=== PATIENT | female | born 2005 | race Caucasian/White ===

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

== ENCOUNTER 2024-02-14 21:46 | Outpatient (CLI) | payer MEDICAID, SELFPAY ==
[2024-02-14 21:52] VITALS: BMI 31.3
[2024-02-14 21:58] VITALS: BP 126/69; PULSE 70
[2024-02-14 22:13] VITALS: BP 108/66; PULSE 55
[2024-02-14 22:29] VITALS: BP 125/60; PULSE 67
[2024-02-15 20:49] LABS: Glucose Point of Care 82 mg/dL (70-110)
== END 2024-02-14 22:54 | disposition home or self-care (01) ==
LOC: OPOB 21:48 → OBGYN 21:52
PROVIDERS: PCP Family Medicine; Visit Provider Family Medicine
DX: O26.899 Other specified pregnancy related conditions, unspecified trimester (principal); Z3A.00 Weeks of gestation of pregnancy not specified
CPT/HCPCS: 36416; 59025; 82962; 99211

== ENCOUNTER 2024-03-09 15:27 | Inpatient (IN) | payer MEDICAID, SELFPAY ==
[2024-03-09] VITALS (84 sets, daily range): BP systolic 98–145; BP diastolic 56–86; PULSE 53–99; RESP 18; TEMP 36.4–37; O2SAT 92–100; BMI 31.7
[2024-03-09 12:34] LABS: Basophils # 0.1 10^3/uL (0.0-0.1); Basophils % 0.6 %; Eosinophils # 0.1 10^3/uL (0.0-0.8); Eosinophils % 1.1 %; Hematocrit 30.1 % (36-47); Lymphocytes # 1.7 10^3/uL (0.8-4.8); Lymphocytes % 16.3 %; Mean Corpuscular HGB Conc 30.6 g/dL (30-55); Mean Corpuscular Hemoglobin 25.8 pg (27-33); Mean Corpuscular Volume 84.6 fl (85-98); Mean Platelet Volume 12.2 fL (7.4-10.4); Monocytes # 0.5 10^3/uL (0.2-0.9); Monocytes % 4.8 %; Neutrophils # 8.09 10^3/uL (1.8-7.7); Neutrophils % 76.9 %; Nucleated Red Blood Cells % 0 %; Platelet Count 191 10^3/cmm (157-399); Red Blood Count 3.56 10^6/uL (3.85-5.65); Red Cell Distribution Width 15.9 % (12.1-15.1); White Blood Count 10.52 10^3/uL (3.29-11.43)
--- NOTE | 2024-03-09 12:34 | ANES.PREANE2 ---
Pre-Anesthetic Assessment Height/Weight: Height 4 ft 11 in Pulse BP O2 Del Method 56 L 119/67 Room Air 03/09/24 11:45 03/09/24 11:45 03/09/24 12:00 Preop Diagnosis: Spontaneous labor Was Beta Martha taken within 24 hours: N/A Was Clonidine taken within 24 hours: N/A Social No alcohol and No tobacco Exam alert, oriented x 3, clear to auscultation bilaterally and regular rate & rhythm Airway Submandibular: within normal limits Cervical ROM: within normal limits Mallampati: Class III Dentition: full Anesthetic Plan ASA status: 2 Anesthesia: Regional (specify below) Other: First , No prior issues with anesthesia Patient has no PMH other than anemia Labs reviewed and acceptable for procedure, platelet 191 Mets>4 Plan for routine epidural placement Medications/Allergies Home Medications Medication Instructions Recorded Confirmed Last Taken Type No Known Home Medications 06/18/19 Unknown History Allergies Allergy/AdvReac Type Severity Reaction Status Date / Time No Known Allergies Allergy Unverified 06/18/19 08:13 [facility] Anesthesia Family History Other Cancer Diabetes Hyperlipidemia Hypertension Stroke Denies family history of CAD (coronary artery disease) Clotting disorder Dementia Psychiatric illness Chronic kidney disease (CKD) Suicide Anesthesia complication Bleeding disorder Family history of premature coronary artery disease Lung disease Social History (Updated 06/18/19 @ 08:17 by Kendra Espinosa LPN) Smoking and tobacco/nicotine status: never used tobacco/nicotine Second hand smoke exposure: Yes Alcohol intake: never Substance/Drug Use: never Adopted: No Data Anesthesia 03/09/24 12:15 Short CBC 03/09/24 Range/Units 12:15 WBC 10.52 (3.29-11.43) 10^3/uL Hgb 9.20 L (11.27-16.99) g/dL Hct 30.1 L (36-47) % MCV 84.6 L (85-98) fl Plt Count 191 (157-399) 10^3/cmm Neut % (Auto) 76.9 % Neut # (Auto) 8.09 H (1.8-7.7) 10^3/uL Cardiac Studies: No Data to Display
[2024-03-09] MEDS: lactated ringers 1,000 ML 999 ML IV ×3 (12:54→21:10)
[2024-03-09] MEDS: fentaNYL 50 mcg/mL INJ 2mL IVP (13:39)
--- NOTE | 2024-03-09 14:32 | ANES.PROC ---
Anesthesia Procedures Procedure/Date: 03/09/24 Epidural: Time Out Performed: Yes Consents Signed: Procedure Consent Consent: from patient, risks and benefits reviewed and patient agrees to proceed Lumbar Level: L3-L4 Epidural position: sitting Epidural procedure: sterile prep of area, 1% lidocaine to numb the area, 18 g needle, negative for paresthesia passed, neg for paresthesia, test dose given, 1.5% xylocaine 1:200k epi, placed PCEA, no systemic response, sterile dressing applied, L.U.D. no apparent complications and 0.2% Ropiavacaine @ mls/hr (10) Additional Comments: BRUNO at 5. negative heme/CSF upon aspiration. pt tolerated well. taped at 12 at skin.
[2024-03-09] MEDS: ROPivacaine syringe 100 MG/50 ML SYRINGE 10 MG EPIDURAL ×3 (14:35→21:10)
[2024-03-10] VITALS (22 sets, daily range): BP systolic 108–143; BP diastolic 59–79; PULSE 59–87; RESP 14–16; TEMP 36.4–36.9; O2SAT 99
[2024-03-10] MEDS: lactated ringers 1,000 ML 999 ML IV (00:20)
--- NOTE | 2024-03-10 02:56 | PM.OPHPUD ---
Labor & Delivery H&P Update Date of Procedure: March 10, 2024 Date H&P Performed: 03/08/24 Admission Diagnosis: IUP at 40 weeks 3 days gestation in spontaneous labor Preop diagnosis: Spontaneous labor Planned procedure: Expectant management of labor and delivery
--- NOTE | 2024-03-10 02:57 | PM.DELIVERY ---
Delivery Note: Date of delivery: March 10, 2024 Procedure: Normal spontaneous vaginal delivery Estimated blood loss (mL): 250 Pre-Delivery Course: The patient had routine care at [facility]. She was blood type O+ antibody negative, hepatitis B nonreactive, hepatitis C nonreactive, HIV nonreactive, rubella immune, GC chlamydia negative, RPR nonreactive, UDS negative, Q low risk, she passed her glucose tolerance test, she was GBS negative. There were really no complications of the pregnanc. Though she did have slow fundal height progression her growth and LEE ultrasounds were within normal limits. Delivery: This is a 19-year-old G1, P0 at 40 weeks 3 days gestation who presented to labor and delivery in active labor. She was admitted for expectant management and received an epidural for pain management. After she received the epidural and was laid back down it appeared that her water had broken spontaneously. Fluid was clear. She progressed well on her own and did not require any Pitocin. She had a normal spontaneous vaginal delivery of a viable female weight 3280 g, 7 pounds 4 ounces, Apgars 9 and 9 over an intact perineum. Upon delivery of the infant's head meconium was noted. There was also a copious amount of terminal meconium. The infant was suctioned at delivery and placed on the mother's chest. The cord was clamped and cut. The placenta was delivered grossly intact and normal to inspection. There was a first-degree periurethral laceration on the right that required 1 stitch of 3-0 chromic. Otherwise there were only hemostatic abrasions. Mother and were doing well after delivery. Coding Level of Care Code Acute Code for Chg Fwd
[2024-03-10] MEDS: ROPivacaine syringe 100 MG/50 ML SYRINGE 10 MG EPIDURAL (04:18)
[2024-03-10] MEDS: docusate sodium 100 mg Capsule PO (10:00)
[2024-03-10] MEDS: PRENATAL VIT NO.130/IRON/FOLIC 1 EACH TABLET PO (10:00)
[2024-03-10] MEDS: benzocaine-menthol 78 gm Canister 1 SPRAY TOPICAL (10:00)
[2024-03-10] MEDS: ibuprofen 800 mg tablet PO ×2 (10:00→20:02)
[2024-03-10 14:31] LABS: Hematocrit 22.8 % (36-47); Mean Corpuscular HGB Conc 31.1 g/dL (30-55); Mean Corpuscular Volume 83.5 fl (85-98); Mean Platelet Volume 11.4 fL (7.4-10.4); Platelet Count 156 10^3/cmm (157-399); Red Blood Count 2.73 10^6/uL (3.85-5.65); Red Cell Distribution Width 15.9 % (12.1-15.1); White Blood Count 11.67 10^3/uL (3.29-11.43)
[2024-03-11] MEDS: ibuprofen 800 mg tablet PO (09:40)
[2024-03-11 10:53] VITALS: BP 102/52; PULSE 71; RESP 16; TEMP 36.7
--- NOTE | 2024-03-11 11:42 | P.DS_ITS ---
Discharge Providers Date of Admission: 03/09/24 15:27 Date of Discharge: March 11, 2024 Attending Provider at Admission: Malika Mays MD Attending Provider at Discharge: Malika Mays MD Primary Care Provider: Jacob Hdz MD Reason for Visit Reason for Visit: CTX Hospital Course Hospital Course This is a 19-year-old G1 now P1 who was admitted in active labor. She had a normal spontaneous vaginal delivery of a viable female infant at 40 weeks 4 days gestation. Mother has done well shoe. She is a mbulating, tolerating a regular diet, has average vaginal bleeding and essentially no pain other than expected cramping. Physical Exam Narrative: Alert and oriented, sitting in bed feeding the infant, heart regular rate and rhythm, lungs clear to auscultation bilaterally, abdomen is soft and nontender, fundus is firm, extremities have 1+ edema but no calf tenderness Urinary Catheter Management: Bryant: Cath Placed During This Visit: yes, but has since been removed by the nurse Reason for Continuing Indwelling Catheter: Other Urinary Catheter Date of Insertion: 03/09/24 Urinary Catheter Time of Insertion: 15:10 Date Urinary Catheter Removed: 03/10/24 Time Urinary Catheter Discontinued: 02:08 Discharge Data Studies Completed and Pending Laboratory Results WBC 11.67 10^3/uL (3.29-11.43) H 03/10/24 14:22 RBC 2.73 10^6/uL (3.85-5.65) L 03/10/24 14:22 Hgb 7.10 g/dL (11.27-16.99) L 03/10/24 14:22 Hct 22.8 % (36-47) L 03/10/24 14:22 MCV 83.5 fl (85-98) L 03/10/24 14:22 MCH 26.0 pg (27-33) L 03/10/24 14:22 MCHC 31.1 g/dL (30-55) 03/10/24 14:22 RDW 15.9 % (12.1-15.1) H 03/10/24 14:22 Plt Count 156 10^3/cmm (157-399) L 03/10/24 14:22 MPV 11.4 fL (7.4-10.4) H 03/10/24 14:22 Neut % (Auto) 76.9 % 03/09/24 12:15 Lymph % (Auto) 16.3 % 03/09/24 12:15 [place] % (Auto) 4.8 % 03/09/24 12:15 Eos % (Auto) 1.1 % 03/09/24 12:15 Baso % (Auto) 0.6 % 03/09/24 12:15 Neut # (Auto) 8.09 10^3/uL (1.8-7.7) H 03/09/24 12:15 Lymph # (Auto) 1.7 10^3/uL (0.8-4.8) 03/09/24 12:15 [place] # (Auto) 0.5 10^3/uL (0.2-0.9) 03/09/24 12:15 Eos # (Auto) 0.1 10^3/uL (0.0-0.8) 03/09/24 12:15 Baso # (Auto) 0.1 10^3/uL (0.0-0.1) 03/09/24 12:15 Nucleated RBC % (auto) 0 % 03/09/24 12:15 Nucleated RBCs # 0.0 /100WBC 03/09/24 12:15 Blood Type O Positive 03/09/24 13:30 Rho(D) Type Rh positive 03/09/24 13:30 Antibody Screen Negative 03/09/24 13:30 Vitals Last Vital Signs Temp 98.1 F 03/11/24 10:53 Pulse 71 03/11/24 10:53 Resp 16 03/11/24 10:53 BP 102/52 03/11/24 10:53 Pulse Ox 99 03/10/24 21:15 O2 Del Method Room Air 03/10/24 21:15 Discharge Plan Discharge Patient Disposition: Home Condition: Stable Prescriptions: No Action No Known Home Medications Discharge Orders: Discharge Order (Routine); Ordered 03/11/24 Ordered By: Malika Mays Referrals: Malika Mays MD [Physician] - 1 month Discharge Diet: Usual diet Discharge Activity: Limit activity as instructed Patient Instructions: Depression (DC), Bleeding (DC), Preeclampsia and Eclampsia After Delivery (GEN), Vaginal Delivery (DC), Hemorrhage (DC), OB Discharge Report, OB Food/Drug Interaction Guide, Opioid Safety, OB Home Care, OB Proud Parent Packet, OB Vaginal Deliveries Activity Restrictions/Additional Instructions: Nothing per vagina for 6 weeks Discharge Attestations Time Spent in Discharge Care*: less than 30 min Quality Metrics Clinical Quality Measures [ No reported AMI, CVA or VTE this stay] Coding Level of Care Code Acute Code for Chg Fwd
[2024-03-11 12:00] VITALS: BP 108/64; PULSE 75; RESP 16; TEMP 36.7; O2SAT 99
--- NOTE | 2024-03-14 14:48 | ANE.PACU2 ---
Inpatient post-anesthesia follow up: Airway intact: Yes Vital signs: Temperature 98.0 F Pulse Rate 75 Respiratory Rate 16 Blood Pressure 108/64 Pulse Oximetry 99 Oxygen Delivery Me thod Room Air Oxygen Flow Rate Fraction of Inspir ed Oxygen Hydration adequate: Yes Nausea and vomiting: No Pain level: 1 Mental status: Baseline Epidural Start/End: Epidural Start Date: 03/09/24 Epidural Start Time: 14:15 Epidural End Date: 03/10/24 Epidural End Time: 05:20
== END 2024-03-11 12:30 | disposition home or self-care (01) | DRG 807 ==
LOC: OPOB 15:28 → OBGYN 15:28
PROVIDERS: Admitting Provider Family Medicine; PCP Family Medicine; Visit Provider Family Medicine
DX: O77.0 Labor and delivery complicated by meconium in amniotic fluid (principal); Z37.0 Single live birth; Z3A.40 40 weeks gestation of pregnancy; O48.0 Post-term pregnancy; O71.82 Other specified trauma to perineum and vulva
CPT/HCPCS: 36415; 51702; 59025; 59409; 85025; 85027; 86850; 86900; 96374; 99211; J2795; J3010; J7120

== ENCOUNTER 2024-03-30 17:45 | Emergency (ER) | payer MEDICAID, SELFPAY ==
--- NOTE | 2024-03-30 17:48 | ECG_ITS ---
[facility] Test Date: 2024-03-30 Pat Name: Bibi Auguste Department: Room: Gender: Female Associate Professor Physician: : 2005 Requested By: Madeline Rebollar Order Number: [id number] Cartagena MD: Jered Avelar M.D. Measurements Intervals [place] Rate: 71 P: 53 IN: 170 QRS: 49 QRSD: 81 T: 29 QT: 363 QTc: 395 Interpretive Statements SINUS RHYTHM No previous ECG available for comparison Electronically Signed On 03-31-2024 13:17:57 SPLICER OPERATOR by Jered Avelar M.D. [id number]
--- NOTE | 2024-03-30 17:48 | CTR_ITS ---
PROCEDURE INFORMATION: Exam: CT Head Without Contrast Exam date and time: 03/30/2024 6:14 PM Age: 19 years old Clinical indication: EMS arrival for seizure TECHNIQUE: Imaging protocol: Computed tomography of the head without contrast. Axial, coronal and sagittal reformatted images were created and reviewed. Radiation optimization: All CT scans at this facility use at least one of these dose optimization techniques: automated exposure control; mA and/or kV adjustment per patient size (includes targeted exams where dose is matched to clinical indication); or iterative reconstruction. COMPARISON: No relevant prior studies available. RADIATION DOSE METRICS: Total DLP (mGy-cm): 970.51 FINDINGS: Brain: No CT evidence of acute intracranial hemorrhage or acute territorial infarction. No significant mass effect or midline shift. Basal cisterns patent. Cerebral ventricles: Normal in size and configuration. Paranasal sinuses: Mild ethmoid mucosal thickening. No air-fluid levels. Mastoid air cells: Grossly unremarkable. Bones: Unremarkable. No acute fracture. Soft tissues: Grossly unremarkable. CT/CT head wo con* [id number]: 1. No CT evidence of acute intracranial pathology. 2. Additional findings, as above.
[2024-03-30 17:49] VITALS: BP 112/74; PULSE 79; RESP 20; TEMP 36.5; O2SAT 100; BMI 26.6
--- NOTE | 2024-03-30 17:55 | PC.NURSE ---
seizure pads placed on bed railing, monitor and storage bin tender placed on pt, suction available at bedside.
[2024-03-30 17:58] LABS: Basophils # 0.1 10^3/uL (0.0-0.1); Basophils % 1.3 %; Eosinophils # 0.2 10^3/uL (0.0-0.8); Eosinophils % 4.9 %; Hematocrit 34.8 % (36-47); Lymphocytes # 1.7 10^3/uL (0.8-4.8); Lymphocytes % 36.3 %; Mean Corpuscular HGB Conc 30.7 g/dL (30-55); Mean Corpuscular Hemoglobin 25.7 pg (27-33); Mean Corpuscular Volume 83.7 fl (85-98); Mean Platelet Volume 11.6 fL (7.4-10.4); Monocytes # 0.3 10^3/uL (0.2-0.9); Monocytes % 5.4 %; Neutrophils # 2.42 10^3/uL (1.8-7.7); Neutrophils % 51.9 %; Nucleated Red Blood Cells % 0 %; Platelet Count 271 10^3/cmm (157-399); Red Blood Count 4.16 10^6/uL (3.85-5.65); Red Cell Distribution Width 14.7 % (12.1-15.1); White Blood Count 4.66 10^3/uL (3.29-11.43)
[2024-03-30 18:05] VITALS: BP 116/68; PULSE 83; O2SAT 99
--- NOTE | 2024-03-30 18:25 | ED_ITS ---
HPI - Seizure 2 General: Chief Complaint: Seizure Stated Complaint: tonic-clonic seizure Time Seen by Provider: 03/30/24 17:47 History of Present Illness: HPI Narrative: Patient presents to the ER by EMS after having tonic-clonic type seizure. This was witnessed by family said lasted about 4 minutes. Per EMS patient was postictal and confused about 20 minutes. Patient says she has had headache since she delivered she did have an epidural. Patient delivered spontaneous vaginal delivery with no complications on March 10. Patient did not have a history of seizures. Patient had a headache since then. Patient did have an epidural. Patient said her body just felt heavy before the seizure. Related Data Home Medications Medication Instructions Recorded Confirmed No Known Home Medications 06/18/19 Allergies Allergy/AdvReac Type Severity Reaction Status Date / Time No Known Allergies Allergy Verified 03/30/24 17:57 Review of Systems 2 General: Reports: 10 or more systems reviewed and unremarkable except in HPI and below PFSH ED 2 PFSH: Family History Other Cancer Diabetes Hyperlipidemia Hypertension Stroke Denies family history of CAD (coronary artery disease) Clotting disorder Dementia Psychiatric illness Chronic kidney disease (CKD) Suicide Anesthesia complication Bleeding disorder Family history of premature coronary artery disease Lung disease Social History Smoking and tobacco/nicotine status: never used tobacco/nicotine Second hand smoke exposure: Yes Alcohol intake: never Substance/Drug Use: never Adopted: No Physical Exam 2 Const: COMMON NORMALS: no acute distress, average body habitus, patient oriented x3, no limitations, healthy appearing, alert and well nourished HENMT: COMMON NORMALS: normocephalic, atraumatic, hearing grossly normal bilaterally, external ears normal, Normal external nose present and moist oral mucous membranes HEAD & SCALP: normocephalic and atraumatic NOSE: Normal external nose present EXTERNAL EAR: Yes external ears normal Eye: COMMON NORMALS: Equal, round and reactive pupils present, EOMs intact bilaterally, conjunctivae normal and no scleral icterus CONJUNCTIVA: Yes conjunctivae normal PUPIL: Yes Equal, round and reactive pupils present Neck/C-Spine: COMMON NORMALS: full ROM, no lymphadenopathy, supple, no meningeal signs, no JVD and Thyroid normal THYROID: Thyroid normal Chest: COMMONS NORMALS: normal inspection of the chest and normal palpation of entire chest wall Resp: COMMON NORMALS: normal respiratory effort, No retractions, No use of accessory muscles and clear to auscultation bilaterally AUSCULTATION: clear to auscultation bilaterally Cardio: COMMON NORMALS: no JVD, regular rate, regular rhythm, S1 normal heart sound present, S2 normal heart sound present, No gallops present (Cardio), No clicks present (Cardio), No murmurs present (Cardio) and No rub (Cardio) R ATE: regular rate RHYTHM: regular rhythm HEART SOUNDS: S1 normal heart sound present and S2 normal heart sound present GI: COMMON NORMALS: Normal to inspection, nondistended, normoactive bowel sounds present, Soft to palpation, non-tender, No hepatosplenomegaly present and no masses PALPATION: Yes Soft to palpation and Yes No hepatosplenomegaly present Neuro: COMMON NORMALS: patient oriented x3 SENSORIUM/ORIENTATION: Yes alert MENINGEAL SIGNS: Yes no meningeal signs Course 2 Vital Signs: Vital signs: Vital Signs Temperature 97.7 F 03/30/24 17:49 Pulse Rate 66 03/30/24 19:38 Respiratory Rate 17 03/30/24 19:38 Blood Pressure 107/61 03/30/24 19:38 Pulse Oximetry 99 03/30/24 19:38 Oxygen Delivery Me thod Room Air 03/30/24 17:49 MDM - Seizure MDM Narrative Medical decision making narrative: Discussed this case with Dr. Galindo, does not sound like preeclamptic type seizure. May be syncope with twitching or a true seizure. We will discharge the patient home let her follow-up with her PCP. Patient may benefit by following up with neurology. Medical Records Attestation: I reviewed the patient's medical records. Lab Data Attestation: I reviewed the patient's lab results. 03/30/24 17:51 03/30/24 17:51 Labs: Radiology Impressions Head CT 03/30/24 17:48 IMPRESSION: 1. No CT evidence of acute intracranial pathology. 2. Additional findings, as above. Laboratory Results WBC 4.66 10^3/uL (3.29-11.43) 03/30/24 17:51 RBC 4.16 10^6/uL (3.85-5.65) 03/30/24 17:51 Hgb 10.70 g/dL (11.27-16.99) L 03/30/24 17:51 Hct 34.8 % (36-47) L 03/30/24 17:51 MCV 83.7 fl (85-98) L 03/30/24 17:51 MCH 25.7 pg (27-33) L 03/30/24 17:51 MCHC 30.7 g/dL (30-55) 03/30/24 17:51 RDW 14.7 % (12.1-15.1) 03/30/24 17:51 Plt Count 271 10^3/cmm (157-399) 03/30/24 17:51 MPV 11.6 fL (7.4-10.4) H 03/30/24 17:51 Neut % (Auto) 51.9 % 03/30/24 17:51 Lymph % (Auto) 36.3 % 03/30/24 17:51 [place] % (Auto) 5.4 % 03/30/24 17:51 Eos % (Auto) 4.9 % 03/30/24 17:51 Baso % (Auto) 1.3 % 03/30/24 17:51 Neut # (Auto) 2.42 10^3/uL (1.8-7.7) 03/30/24 17:51 Lymph # (Auto) 1.7 10^3/uL (0.8-4.8) 03/30/24 17:51 [place] # (Auto) 0.3 10^3/uL (0.2-0.9) 03/30/24 17:51 Eos # (Auto) 0.2 10^3/uL (0.0-0.8) 03/30/24 17:51 Baso # (Auto) 0.1 10^3/uL (0.0-0.1) 03/30/24 17:51 Nucleated RBC % (auto) 0 % 03/30/24 17:51 Nucleated RBCs # 0.0 /100WBC 03/30/24 17:51 Sodium 140 mmol/L (136-145) 03/30/24 17:51 Potassium 4.4 mmol/L (3.5-5.1) 03/30/24 17:51 Chloride 103 mmol/L (98-107) 03/30/24 17:51 Carbon Dioxide 23 mmol/L (22-29) 03/30/24 17:51 Anion Gap 18.4 (5-19) 03/30/24 17:51 BUN 7 mg/dL (6-20) 03/30/24 17:51 Creatinine 0.8 mg/dL (0.5-0.9) 03/30/24 17:51 GFR Calculation 90.5 mL/min (90-130) 03/30/24 17:51 Glucose 80 mg/dL (65-115) 03/30/24 17:51 Calculated Osmolality 287 mOsm/kg (285-295) 03/30/24 17:51 Calcium 10.0 mg/dL (8.5-10.5) 03/30/24 17:51 Total Bilirubin 0.5 mg/dL (0.15-1.2) 03/30/24 17:51 AST 30 U/L (0-32) 03/30/24 17:51 ALT 21 U/L (0-33) 03/30/24 17:51 Alkaline Phosphatase 114 U/L (35-105) H 03/30/24 17:51 Lactate Dehydrogenase 277 U/L (135-214) H 03/30/24 17:51 Total Protein 8.1 g/dL (6.6-8.7) 03/30/24 17:51 Albumin 4.5 g/dL (3.5-5.2) 03/30/24 17:51 Globulin 3.6 g/dL (1.3-4.6) 03/30/24 17:51 Urine Color Yellow (Yellow) 03/30/24 19:36 Urine Appearance Clear (CLEAR) 03/30/24 19:36 Urine pH 7.0 (5-7) 03/30/24 19:36 Ur Specific [place] 1.012 (1.005-1.030) 03/30/24 19:36 Urine Protein 1+ (Negative) A 03/30/24 19:36 Urine Glucose (UA) Negative (Normal) 03/30/24 19:36 Urine Ketones Negative (Negative) 03/30/24 19:36 Urine Blood 3+ (Negative) A 03/30/24 19:36 Urine Nitrate Negative (Negative) 03/30/24 19:36 Urine Bilirubin Negative (Negative) 03/30/24 19:36 Urine Urobilinogen 1.0 mg/dL (Negative) 03/30/24 19:36 Ur Leukocyte Esterase 1+ (Negative) A 03/30/24 19:36 Urine RBC 6-10 /hpf (0-2) 03/30/24 19:36 Urine WBC 11-20 /hpf (0-5) H 03/30/24 19:36 Ur Squamous Epith Cells 0-5 /hpf (0-5) 03/30/24 19:36 Amorphous Sediment Not Reportable 03/30/24 19:36 Urine Bacteria 2+ /hpf (NONE) H 03/30/24 19:36 Hyaline Casts 0.40 /lpf 03/30/24 19:36 All radiology interpretation(s) finalized by discharge Discharge Plan Discharge Patient Disposition: Home Clinical Impression: New onset seizure Condition: Stable Prescriptions: No Action No Known Home Medications Discharge Orders: Discharge ED (Routine); Ordered 03/30/24 Ordered By: Richard Lagos Referrals: Jacob Hdz MD [Primary Care Provider] - 1 week Patient Instructions: Seizures Activity Restrictions/Additional Instructions: Your evaluation in the ER did not show any acute cause of your seizure activity. We did discuss the results of the lab tests and imaging and physical exam with Dr. Mays, she does not think it is an preeclamptic type seizure. Please follow- up with your family practice physician for further evaluation and treatment. You may benefit from a referral to a neurologist for formal evaluation. Coding Level of Care Code ED Digestion Operator for Delmy Arias
[2024-03-30 18:29] LABS: Alanine Aminotransferase 21 U/L (0-33); Albumin Level 4.5 g/dL (3.5-5.2); Alkaline Phosphatase 114 U/L (35-105); Blood Urea Nitrogen 7 mg/dL (6-20); Carbon Dioxide 23 mmol/L (22-29); Chloride 103 mmol/L (98-107); Creatinine Clr Calc Pharmacy 105.1433; Globulin 3.6 g/dL (1.3-4.6); Glomerular Filtration Rate 90.5 mL/min (90-130); Glucose 80 mg/dL (65-115); Osmolality Calculated 287 mOsm/kg (285-295); Sodium 140 mmol/L (136-145); Total Bilirubin 0.5 mg/dL (0.15-1.2); Total Protein 8.1 g/dL (6.6-8.7)
[2024-03-30 18:37] LABS: Anion Gap 18.4 (5-19); Aspartate Amino Transferase 30 U/L (0-32); Lactate Dehydrogenase 277 U/L (135-214); Potassium 4.4 mmol/L (3.5-5.1)
[2024-03-30 19:11] VITALS: BP 108/67; PULSE 52; RESP 16; O2SAT 98
[2024-03-30 19:38] VITALS: BP 107/61; PULSE 66; RESP 17; O2SAT 99
[2024-03-30 19:48] LABS: Bilirubin Urine Negative (Negative); Blood Urine 3+ (Negative); Glucose Urine UA Negative (Normal); Ketones Urine Negative (Negative); Leukocyte Esterase Urine 1+ (Negative); Nitrate Urine Negative (Negative); Protein Urine 1+ (Negative); Specific Gravity, Urine 1.012 (1.005-1.030); Urine Appearance Clear (CLEAR); Urine Color Yellow (Yellow)
[2024-03-30 19:53] LABS: Add Urine Microscopic? YES; Bacteria Urine 2+ /hpf; Squamous Epithelial Cell Urine 0-5 /hpf (0-5)
[2024-03-30 20:02] LABS: Add Urine Culture? Yes
[2024-03-30 20:22] VITALS: BP 108/61; PULSE 54; RESP 14; O2SAT 98
[2024-03-30 20:37] VITALS: BP 108/61; PULSE 55; O2SAT 98
== END 2024-03-30 20:39 | disposition home or self-care (01) ==
PROVIDERS: Emergency Medicine; Emergency Provider Emergency Medicine; PCP Family Medicine
DX: G40.89 Other seizures (principal)
CPT/HCPCS: 70450; 80053; 81001; 83615; 85025; 87077; 87086; 87186; 93005; 99284

== ENCOUNTER → 2024-11-09 16:55 | Outpatient (BNVA) | payer MEDICAID, SELFPAY | PROVIDERS: PCP Family Medicine; Visit Provider Emergency Medicine | DX: J06.9 Acute upper respiratory infection, unspecified (principal) | CPT/HCPCS: 87400; 87426 ==